=== PATIENT | female | born 1960 | race Caucasian/White ===

== ENCOUNTER 2019-11-23 22:41 | Emergency (ER) | payer MEDICAID, OTHER ==
[~2019-11-23] VITALS: Ht 165.1 cm; Wt 81.6 kg
--- NOTE | 2019-11-23 22:59 | NUR ---
PT AAOX4. BIBRA. PT REPORTED SI W/ PLAN "TO GET A BULLET AND BLOW MY BRAIN" -HI. PT PLACED IN GOWN, ON MONITOR AND PULSE OX. VSS. PT BELONINGS PLACED IN LOCKER. VSS. WILL COTNINUE TO MONITOR.
--- NOTE | 2019-11-23 23:01 | NUR ---
SECURITY CALLED FOR WANDING.
[2019-11-23 23:22] LABS: BASOPHILS # (AUTO) 0.1 /CMM (0.0-0.2); BASOPHILS % (AUTO) 0.6 % (0.0-2.0); EOSINOPHILS % (AUTO) 2.6 % (0.0-6.0); HEMATOCRIT 31 % (33-45); HEMOGLOBIN 9.8 g/dL (11.5-14.8); LYMPHOCYTES # (AUTO) 1.6 /CMM (0.8-4.8); LYMPHOCYTES % (AUTO) 18.7 % (20.0-44.0); MEAN CORPUSCULAR HGB CONC 31 g/dl (31.0-36.0); MEAN CORPUSCULAR VOLUME 69 fL (82-100); MONOCYTES # (AUTO) 0.8 /CMM (0.1-1.30); NEUTROPHILS # (AUTO) 5.8 /CMM (1.8-8.9); NEUTROPHILS % (AUTO) 69.1 % (43.0-81.0); PLATELET COUNT (AUTO) 339 /CMM (150-450); WHITE BLOOD COUNT (AUTO) 8.4 K/uL (4.3-11.0)
[2019-11-23 23:40] LABS: CALCIUM, SERUM 8.9 mg/dL (8.5-10.1); CARBON DIOXIDE 29 mmol/L (21-32); CHLORIDE 99 mmol/L (98-107); CREATININE 0.6 mg/dL (0.6-1.3); GLUCOSE 105 mg/dL (74-106); POTASSIUM 3.1 mmol/L (3.5-5.1); SODIUM SERUM 134 mmol/L (136-145); UREA NITROGEN, BLOOD 14 mg/dL (7-18)
[2019-11-23 23:46] LABS: ACETAMINOPHEN < 2 ug/ml (10-30); ALANINE AMINOTRANSFERASE 27 U/L (12-78); ALBUMIN 3.3 g/dL (3.4-5.0); ALCOHOL, BLOOD < 3 mg/dL (0-0); ALKALINE PHOSPHATASE 101 U/L (46-116); ASPARTATE AMINOTRANSFERASE 22 U/L (15-37); BILIRUBIN,DIRECT 0.1 mg/dL (0.0-0.2); BILIRUBIN,TOTAL 0.3 mg/dL (0.2-1.0); SALICYLATE 3.8 mg/dL (2.8-20.0); TOTAL PROTEIN, SERUM 6.6 g/dL (6.4-8.2)
--- NOTE | 2019-11-24 00:22 | NUR ---
Patient is resting comfortably in bed with eyes closed. Easily aroused. VSS.
[2019-11-24 00:41] LABS: APPEARANCE,URINE Clear (CLEAR); BILIRUBIN,URINE Negative (NEGATIVE); BLOOD, URINE Negative Ery/uL (NEGATIVE); COLOR,URINE Yellow (YELLOW); KETONES,URINE Negative (NEGATIVE); LEUKOCYTE ESTERASE ,URINE Negative (NEGATIVE); NITRITE, URINE Negative (NEGATIVE); PROTEIN,URINE Negative (NEGATIVE); UGLUCOSE Negative (NEGATIVE); UROBILINOGEN,URINE 0.2 EU/dL (0.2)
--- NOTE | 2019-11-24 03:05 | NUR ---
TRANSFER INFORMATION: PT ACCEPTED TO [facility] ACCEPTING MD: DR. PAUL/DR. ROBLERO NUMBER FOR REPORT: [phone]
[2019-11-24 03:23] VITALS: BP 127/82
--- NOTE | 2019-11-24 03:23 | NUR ---
[facility] ETA 0430 CONFIRMATION NUMBER [id number]
[2019-11-24] MEDS ORDERED: POTASSIUM CHLORIDE 20 MEQ TAB.PRT.SR PO ONE ×2 (03:25→03:30)
--- NOTE | 2019-11-24 03:33 | NUR ---
REPORT GIVEN TO AMEL[facility] HE FOR [facility]
--- NOTE | 2019-11-24 03:51 | NUR ---
REPORT GIVEN TO [facility], PT BEING TRANSPORTED.
== END 2019-11-24 03:56 ==
LOC: ER 22:49
DX: R45.851 Suicidal ideations (principal); J45.909 Unspecified asthma, uncomplicated; Z88.8 Allergy status to other drugs, medicaments and biological substances; Z04.6 Encounter for general psychiatric examination, requested by authority
CPT/HCPCS: 36415; 80048; 80076; 80305; 80307; 80329; 81001; 85025; 99285; G0480; 81000-TC

== ENCOUNTER 2020-02-09 05:05 | Emergency (ER) | payer OTHER ==
[~2020-02-09] VITALS: Ht 160 cm; Wt 68.0 kg
--- NOTE | 2020-02-09 05:25 | NUR ---
PT WAS BIBS FOR SI EVALUATION. REPORTED SHE IS VERY DEPRESSED, AND PLANNING TO HURT HERSELF WITH A RAZOR. PT AMBULATORY TO BED 15. ALERT AND ORIENTED. PT WAS GOWNED UP AND PLACED ON A MONITOR. ALL BELONGINGS WERE TAKEN AWAY AND PLACED ON A LOCKER. SUICIDAL PRECAUTION IN PLACE. PT ON MONITOR AND UNDER CLOSE SUPERVISION OF A SITTER FOR SAFETY. WILL CONT TO MONITOR ,
[2020-02-09 05:42] LABS: APPEARANCE,URINE Clear (CLEAR); BILIRUBIN,URINE Negative (NEGATIVE); BLOOD, URINE Moderate Ery/uL (NEGATIVE); COLOR,URINE Yellow (YELLOW); KETONES,URINE Negative (NEGATIVE); LEUKOCYTE ESTERASE ,URINE Negative (NEGATIVE); NITRITE, URINE Negative (NEGATIVE); PH,URINE 6.5 (5.0-8.0); PROTEIN,URINE Negative (NEGATIVE); UGLUCOSE Negative (NEGATIVE); UROBILINOGEN,URINE 0.2 EU/dL (0.2)
[2020-02-09 05:44] LABS: BASOPHILS % (AUTO) 0.5 % (0.0-2.0); EOSINOPHILS % (AUTO) 6.1 % (0.0-6.0); HEMATOCRIT 27 % (33-45); HEMOGLOBIN 8.3 g/dL (11.5-14.8); LYMPHOCYTES # (AUTO) 2.5 /CMM (0.8-4.8); LYMPHOCYTES % (AUTO) 35.6 % (20.0-44.0); MEAN CORPUSCULAR HGB CONC 31 g/dl (31.0-36.0); MEAN CORPUSCULAR VOLUME 65 fL (82-100); MONOCYTES # (AUTO) 0.6 /CMM (0.1-1.30); MONOCYTES % (AUTO) 8.8 % (2.0-12.0); NEUTROPHILS # (AUTO) 3.5 /CMM (1.8-8.9); PLATELET COUNT (AUTO) 375 /CMM (150-450); RED BLOOD CELL COUNT(AUTO) 4.15 MIL/uL (4.0-5.2); WHITE BLOOD COUNT (AUTO) 7.1 K/uL (4.3-11.0)
[2020-02-09 05:52] LABS: CALCIUM, SERUM 8.6 mg/dL (8.5-10.1); CARBON DIOXIDE 30 mmol/L (21-32); CHLORIDE 106 mmol/L (98-107); CREATININE 0.7 mg/dL (0.6-1.3); GLUCOSE 98 mg/dL (74-106); POTASSIUM 3.7 mmol/L (3.5-5.1); SODIUM SERUM 141 mmol/L (136-145); UREA NITROGEN, BLOOD 14 mg/dL (7-18)
[2020-02-09 05:59] LABS: BACTERIA,URINE Moderate /HPF (None Seen); RBC,URINE 0-2 /HPF (0-2); SQUAMOUS EPITHELIAL CELL,UR Moderate /HPF (None Seen); WBC,URINE 0-2 /HPF (0-3); YEAST,URINE Few /HPF (None Seen)
[2020-02-09 06:02] LABS: ACETAMINOPHEN 1 ug/ml (10-30); ALANINE AMINOTRANSFERASE 21 U/L (12-78); ALCOHOL, BLOOD < 3 mg/dL (0-0); ALKALINE PHOSPHATASE 80 U/L (46-116); ASPARTATE AMINOTRANSFERASE 20 U/L (15-37); BILIRUBIN,DIRECT 0.1 mg/dL (0.0-0.2); BILIRUBIN,TOTAL 0.2 mg/dL (0.2-1.0); SALICYLATE 3.6 mg/dL (2.8-20.0); TOTAL PROTEIN, SERUM 5.9 g/dL (6.4-8.2)
--- NOTE | 2020-02-09 06:26 | NUR ---
PT RESTING IN BED COMFORTABLY. VSS. NO ACUTE DISTRESS NOTED. SITTER AT BEDSIDE FOR SAFETY. WILL CONTINUE TO MONITOR
--- NOTE | 2020-02-09 07:44 | NUR ---
ASSESSED PT ON BED ASLEEP EASILY AROUSABLE, AAOX4, NOT IN RESPIRATORY DISTRESS, V/S STABLE, KEPT RESTED AND COMFORTABLE. WILL CONTINUE TO MONITOR, SITTER AT BEDSIDE.
--- NOTE | 2020-02-09 08:41 | NUR ---
Social service consult requested by MD for voluntary psychiatric admission. Per MD notes, pt is a 59-year -old female stating she is depressed and has suicidal ideation and is planning to cut herself with razor blades. She has a history of depression and has been admitted for voluntary psychiatric evaluation in the past and is here today with her 20-year-old boyfriend who is presenting with the same complaints and request. MANAGER GAMING conducted chart review and met with the pt bedside in ED. MANAGER GAMING introduced self and purpose of the visit. Pt is alert and oriented x 4. Pt is homeless and has a 20-year old boyfriend. Pt has a psychiatric diagnosis of Bipolar Disorder. Pt has been to [facility] in the past and is requesting voluntary hospitalization at [facility] again. Pt denies homicidal ideations. Pt is homeless. Pt reports she is a smoker and denies drug use. MANAGER GAMING contacted Mendel at [facility] and initiated voluntary psychiatric hospitalization. MANAGER GAMING faxed clinicals to [facility] intake dept. CRN Gener notified. Lead Cashier is available for support as needed.
--- NOTE | 2020-02-09 09:49 | NUR ---
[facility] intake patient is accepted to [facility] report [phone] unit #[address] Rodriguez/Dr. Gleason
--- NOTE | 2020-02-09 09:55 | NUR ---
REPORT GIVEN TO [facility].
--- NOTE | 2020-02-09 10:33 | NUR ---
CALLED [facility] C[facility]ER[facility] [phone]
--- NOTE | 2020-02-09 12:09 | NUR ---
REPORT GIVEN TO EMS FOR TRANSFER TO [facility].
[2020-02-09 12:14] VITALS: BP 128/81
== END 2020-02-09 12:15 ==
LOC: ER 05:16
DX: R45.851 Suicidal ideations (principal); F31.9 Bipolar disorder, unspecified; F17.210 Nicotine dependence, cigarettes, uncomplicated; J45.909 Unspecified asthma, uncomplicated; Z59.0 Homelessness; Z88.8 Allergy status to other drugs, medicaments and biological substances
CPT/HCPCS: 36415; 80048; 80076; 80305; 80307; 80329; 81001; 85025; 87086; 99285; 99406; G0480; 81000-TC